=== PATIENT | female | born 1990 | race Caucasian/White ===

== ENCOUNTER 2019-07-04 18:49 | Emergency (ER) | payer MEDICAID ==
[~2019-07-04] VITALS: Ht 160 cm; Wt 52.3 kg
[~2019-07-04 18:49] MED LIST: AZIT250T PO; CLIN150C8 PO; NITR100C6 PO; ONDA4TAB6 PO; ONDA8TAB9 PO
[2019-07-04] MEDS ORDERED: PROC5TAB56 PO (20:25)
[2019-07-04] MEDS ORDERED: ONDA4TAB6 PO (20:25)
[2019-07-04] MEDS ORDERED: HYDR-3965 PO (20:25)
[2019-07-04] MEDS ORDERED: proCHLORperazine 10mg tablet PO ONE (20:25)
[2019-07-04] MEDS ORDERED: SUMA25TA35 PO (20:25)
[2019-07-04] MEDS ORDERED: SUMAtriptan succ. 6 MG/0.5ml vial SQ ONE (20:25)
[2019-07-04] MEDS ORDERED: dexamethasone 4mg tablet PO ONE (20:25)
[2019-07-04] MEDS ORDERED: METH4TAB81 PO (20:25)
[2019-07-04] MEDS ORDERED: ketorolac tromethamine 15mg/ml inj. IM ONE (20:25)
[2019-07-04 20:51] VITALS: BP 111/80
== END 2019-07-04 21:06 | disposition home or self-care (01) ==
LOC: ER 18:49
DX: G43.909 Migraine, unspecified, not intractable, without status migrainosus (principal); K02.9 Dental caries, unspecified; F41.9 Anxiety disorder, unspecified; F15.90 Other stimulant use, unspecified, uncomplicated; F11.90 Opioid use, unspecified, uncomplicated; Z98.890 Other specified postprocedural states; Z88.5 Allergy status to narcotic agent; Z79.2 Long term (current) use of antibiotics; Z79.899 Other long term (current) drug therapy
CPT/HCPCS: 96372; 99284; J1885; J3030; Q0164

== ENCOUNTER 2021-06-17 15:03 | Outpatient (CLI) | payer MEDICAID ==
[~2021-06-17 15:03] MED LIST changes: +METH4TAB81 PO; +PROC5TAB56 PO; +SUMA25TA35 PO
== END 2021-06-17 23:59 | disposition home or self-care (01) ==
LOC: LAB 15:03
PROVIDERS: ATTEND General Practice
DX: F11.20 Opioid dependence, uncomplicated (principal)
CPT/HCPCS: 93005

== ENCOUNTER 2021-08-25 12:06 | Emergency (ER) | payer MEDICAID ==
[~2021-08-25] VITALS: Ht 160 cm; Wt 59.1 kg
[2021-08-25 12:38] VITALS: BP 105/66
== END 2021-08-25 13:40 | disposition left against medical advice (07) ==
LOC: ER 12:07
DX: L02.413 Cutaneous abscess of right upper limb (principal); Z53.21 Procedure and treatment not carried out due to patient leaving prior to being seen by health care provider

== ENCOUNTER 2022-05-15 16:12 | Emergency (ER) | payer MEDICAID ==
[~2022-05-15] VITALS: Ht 160 cm; Wt 71.8 kg
[2022-05-15 16:19] VITALS: BP 118/79
== END 2022-05-15 17:38 | disposition left against medical advice (07) ==
LOC: ER 16:13
DX: T23.009A Burn of unspecified degree of unspecified hand, unspecified site, initial encounter (principal); Z53.21 Procedure and treatment not carried out due to patient leaving prior to being seen by health care provider; X08.8XXA Exposure to other specified smoke, fire and flames, initial encounter; Y93.89 Activity, other specified; Y92.89 Other specified places as the place of occurrence of the external cause; Y99.8 Other external cause status

== ENCOUNTER 2022-10-16 17:24 | Emergency (ER) | payer MEDICAID ==
[~2022-10-16 17:24] MED LIST changes: +CLIN-214 PO; -CLIN150C8 PO
== END 2022-10-16 19:23 | disposition left against medical advice (07) ==
LOC: ER 17:25
DX: J11.1 Influenza due to unidentified influenza virus with other respiratory manifestations (principal); Z53.21 Procedure and treatment not carried out due to patient leaving prior to being seen by health care provider

== ENCOUNTER 2023-02-22 05:22 | Emergency (ER) | payer MEDICAID ==
[~2023-02-22] VITALS: Ht 160 cm; Wt 58.2 kg
[2023-02-22 05:26] VITALS: BP 112/73; PULSE 83; RESP 16; TEMP 97.8; O2SAT 100
--- NOTE | 2023-02-22 06:37 | NUR ---
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 XPLVN
--- NOTE | 2023-02-22 06:45 | NUR ---
BR[employer] MACHINE GENERAL ASSESSMENT REVIEWED BY AYDIN RN; APPROVED
--- NOTE | 2023-02-22 07:34 | NUR ---
pt davidob, Dr Degroot was asked to see pt in fast track and stated he would not be seeing patients in fast track, she could no longer wait and left without being seen approx 730. XPLORINN Addendum: 02/22/23 at 0735 by [email or web address] pt here for abx for tooth pain was told in triage she would be seen and out by 7 am, one provider on at this time
== END 2023-02-22 07:40 | disposition left against medical advice (07) ==
LOC: ER 05:23
DX: K08.89 Other specified disorders of teeth and supporting structures (principal); Z53.21 Procedure and treatment not carried out due to patient leaving prior to being seen by health care provider
CPT/HCPCS: 99281

== ENCOUNTER 2023-12-05 15:56 | Emergency (ER) | payer MEDICAID ==
[~2023-12-05] VITALS: Ht 160 cm; Wt 57.3 kg
[2023-12-05 16:01] VITALS: TEMP 98.9
[2023-12-05] MEDS: ketorolac trometh 30MG/ML vial 30 MG/ML VIAL IV ONE (16:39)
[2023-12-05] MEDS: normal saline 1000ml 1,000 ML IV ONE (16:39)
[2023-12-05] MEDS: dexamethasone sod phosphate 10mg/ml inj IV STA (16:39)
[2023-12-05 17:15] LABS: STREP A SCREEN NEGATIVE (Neg)
[2023-12-05] MEDS ORDERED: OXYM30SP26 BOTHNARES (17:26)
[2023-12-05] MEDS ORDERED: PRED20TA PO (17:26)
[2023-12-05] MEDS ORDERED: AMOX-580 PO (17:26)
[2023-12-05] MEDS ORDERED: FLUT9.9S BOTHNARES (17:26)
[2023-12-05 17:46] VITALS: BP 110/80; PULSE 88; RESP 16; O2SAT 98
== END 2023-12-05 17:52 | disposition home or self-care (01) ==
LOC: ER 15:56
DX: J32.9 Chronic sinusitis, unspecified (principal); Z20.822 Contact with and (suspected) exposure to COVID-19; F41.9 Anxiety disorder, unspecified; F15.90 Other stimulant use, unspecified, uncomplicated; Z88.5 Allergy status to narcotic agent; Z79.2 Long term (current) use of antibiotics; Z79.899 Other long term (current) drug therapy
CPT/HCPCS: 36415; 71045; 87081; 87811; 87880; 96361; 96374; 96375; 99284; J1100; J1885; J7030